=== PATIENT | male | born 1995 | race Caucasian/White ===

== ENCOUNTER 2020-12-12 03:03 | Emergency (ER) | payer OTHER, BC, SELFPAY ==
[2020-12-12 03:03] VITALS: BP 144/87; PULSE 89; RESP 16; TEMP 36.7; O2SAT 95; BMI 29.1
--- NOTE | 2020-12-12 03:20 | EKG12_ITS ---
Test Reason : SHOCKED Blood Pressure : / mmHG Vent. Rate : 078 BPM Atrial Rate : 078 BPM P-R Int : 156 ms QRS Dur : 100 ms QT Int : 344 ms P-R-T Axes : 036 009 023 degrees QTc Int : 392 ms Normal sinus rhythm with sinus arrhythmia Normal ECG Confirmed by ADALGISA CAR, DAYSI ([id number]), marketing editor YURY KRISHNAN ([id number]) on 12/15/2020 12:30:47 PM Referred By: AUBRIE Confirmed By:BRANDO DIANA MD
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
[2020-12-12 04:20] LABS: CPK Total, Creatine Kinase 128 U/L (39-308)
[2020-12-12] MEDS: Naproxen 500 MG Tablet PO (04:28)
[2020-12-12 04:50] VITALS: RESP 16
== END 2020-12-12 04:50 | disposition home or self-care (01) ==
PROVIDERS: Emergency Provider Emergency Medicine
DX: T75.4XXA Electrocution, initial encounter (principal); M79.601 Pain in right arm; M79.605 Pain in left leg; M79.604 Pain in right leg; W86.8XXA Exposure to other electric current, initial encounter; Y93.9 Activity, unspecified; Y92.9 Unspecified place or not applicable; Y99.0 Civilian activity done for income or pay; F17.210 Nicotine dependence, cigarettes, uncomplicated
CPT/HCPCS: 82550; 93005; 99282

== ENCOUNTER 2021-01-12 15:40 | Emergency (ER) | payer BC, SELFPAY ==
[2021-01-12 15:40] VITALS: BP 151/127; PULSE 71; RESP 18; TEMP 36.1; O2SAT 98; BMI 29.1
--- NOTE | 2021-01-12 15:43 | RAD_ITS ---
EXAM: XR RIGHT FOOT COMPLETE, 3 OR MORE VIEWS : 1995 CLINICAL INDICATION: trauma TECHNIQUE: Frontal, lateral and oblique views of the right foot. This report was created using [employer] report generation technology. COMPARISON: None. FINDINGS: BONES/JOINTS: Acute fracture involves the proximal portion of the first distal phalanx extending to the articular surface. Preservation of the joint space. No sclerotic or destructive changes observed. SOFT TISSUES: Unremarkable. No soft tissue swelling or gas. No radiopaque foreign body. RAD/Foot min 3 Views IMPRESSION: Acute intra-articular fracture of the first distal phalanx. at 1650 Reported and signed by: Edwardo Mcclelland MD Electronically Signed: Edwardo Mcclelland MD at 16:49 EST Tel , Service support ,
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
== END 2021-01-12 18:35 | disposition home or self-care (01) ==
LOC: ED 18:31
PROVIDERS: Emergency Provider Emergency Medicine
DX: S92.421A Displaced fracture of distal phalanx of right great toe, initial encounter for closed fracture (principal); V86.56XA Driver of dirt bike or motor/cross bike injured in nontraffic accident, initial encounter; Y93.9 Activity, unspecified; Y92.9 Unspecified place or not applicable; Y99.9 Unspecified external cause status; F17.210 Nicotine dependence, cigarettes, uncomplicated
CPT/HCPCS: 73630; 99283